=== PATIENT | female | born 1965 | race Two or more races ===

== ENCOUNTER 2020-12-11 23:38 | Emergency (ER) | payer OTHER ==
[~2020-12-11] VITALS: Ht 160 cm; Wt 59.0 kg
[2020-12-11] MEDS ORDERED: LEVOTHYROXINE25 MCG PO (23:50)
== END 2020-12-12 01:09 | disposition home or self-care (01) ==
LOC: ER 23:38
DX: R00.2 Palpitations (principal); T40.7X5A Adverse effect of cannabis (derivatives), initial encounter